=== PATIENT | female | born 1965 | race Hispanic/Latino ===

== ENCOUNTER → 2022-05-05 | Outpatient (CLI) | payer MEDICARE | LOC: CT 11:20 | PROVIDERS: ATTEND Internal Medicine | DX: G43.019 Migraine without aura, intractable, without status migrainosus (principal) | CPT/HCPCS: 70450 ==

== ENCOUNTER → 2025-06-30 | Outpatient (REF) | payer MEDICARE | LOC: DX 13:20 | PROVIDERS: ATTEND Internal Medicine | DX: M85.88 Other specified disorders of bone density and structure, other site (principal); R51.9 Headache, unspecified; Z91.81 History of falling | CPT/HCPCS: 70450; 77080 ==